=== PATIENT | female | born 1950 | race Asian ===

== ENCOUNTER 2017-05-22 12:20 | Day surgery (SDC) | END 2017-05-22 17:08 | disposition home or self-care (01) | DX: R19.4 Change in bowel habit (principal); D12.0 Benign neoplasm of cecum; K44.9 Diaphragmatic hernia without obstruction or gangrene; K29.60 Other gastritis without bleeding; K64.8 Other hemorrhoids; I10 Essential (primary) hypertension | CPT/HCPCS: 43239; 45380; 87081; 88305; J2250; J3010; Z7610 ==

== ENCOUNTER 2018-11-13 16:25 | Emergency (ER) | payer OTHER ==
[~2018-11-13] VITALS: Wt 48.1 kg
[~2018-11-13 16:25] MED LIST: LISINOPRIL; SIMVASTATIN; ZANTAC
[2018-11-13] MEDS ORDERED: SOD CHLORIDE 0.9% 1,000 ML IV STA (18:50)
--- NOTE | 2018-11-13 19:34 | ERD ---
ER Documentation Chief Complaint Chief Complaint DIZZINESS AND BLOODY STOOLS SINCE TODAY 2 TIMES. GEN WEAKNESS, MILD AP HPI This is a 68-year-old female with a past medical history of hypertension high cholesterol past surgical history that includes a total abdominal hysterectomy. 5 days prior to arrival the patient was diagnosed with influenza and started Tamiflu. She indicates that 2 days prior to arrival she started taking R obitussin. The patient indicates that yesterday prior to going to bed she noticed an orange color tenting her stool. She denied any gross blood per rectum and no melanotic stools. She said no fevers no shaking or chills. She complained of mild epigastric discomfort which she stated lasted for roughly 1 hour and then spontaneously resolved. The patient does have a past medical history of hemorrhoids but indicates she has had no bleeding for several years. The patient did not take any analgesic medication. The patient indicates she had a bowel movement this morning which was coated with a slight yellow-orange color. She denied again any bright red blood. She had no chest pain. She felt slightly dizzy but indicated this lasted for only several seconds and then spontaneously resolved. She denied a headache. ROS All systems reviewed and are negative except as per history of present illness. Medications Home Meds Reported Medications [Simvastatin] No Conflict Check 05/22/17 [Lisinopril] No Conflict Check 05/22/17 [Zantac] No Conflict Check 05/22/17 Allergies Allergies: Coded Allergies: No Known Allergy (Unverified , 05/22/17) PMhx/Soc History of Surgery: Yes (HYSTERECTOMY, colonoscopy) Anesthesia Reaction: No Hx Neurological Disorder: No Hx Respiratory Disorders: No Hx Cardiac Disorders: Yes (HYPERTENSION, high cholesterol) Hx Psychiatric Problems: No Hx Miscellaneous Medical Probl: Yes Hx Alcohol Use: No Hx Substance Use: No Hx Tobacco Use: No Smoking Status: Never smoker Physical Exam Vitals Vital Signs Date Temp Pulse Resp B/P (MAP) Pulse Ox O2 O2 Flow FiO2 Time Delivery Rate 11/13/18 98.9 76 18 170/84 98 16:29 (112) Physical Exam Constitutional:Well-developed. Well-nourished. Very pleasant female not in any respiratory distress or appear to be in any discomfort HEENT:Normocephalic. Atraumatic.Pupils were equal round reactive to light. Moist mucous membranes.No tonsillar exudates. No conjunctival pallor Neck: No nuchal rigidity. No lymphadenopathy. No posterior cervical spine tenderness or step-offs. Respiratory: Not using accessory muscles of respiration.Lungs were clear to auscultation bilaterally. No rhonchi. No rales. No wheezing. Cardiovascular: Regular rate regular rhythm.No murmurs. No rubs were appreciated.S1, S2 normal. Distal pulses are palpable 2+ bilaterally. GI: Abdomen was soft. Nontender. Non Distended. No pulsatile abdominal masses or bruits. No rebound. No guarding. Bowel sounds were present and normal. Rectal: Normal sphincter tone. No gross blood per rectum. No hemorrhoids. Fecal occult blood test negative Muscle skeletal: Full range of motion of both the upper and lower extremities bilaterally.Normal muscle tone.No assymetrical calf tenderness or swelling. Skin: No petechia, no purpura. No lesions on the palms or the soles of the feet. No maculopapular rash. NEURO: Patient was alert, awake, orientated x3.No facial droop. Gait observed and normal with no ataxia.Speech had regular rate and rhythm. No focal neurological deficits. Result Diagram: 11/13/181915 Results 24 hrs Laboratory Tests Test 11/13/18 19:16 White Blood Count 9.0 10^3/ul Red Blood Count 4.17 10^6/ul Hemoglobin 12.8 g/dl Hematocrit 37.7 % Mean Corpuscular Volume 90.4 fl Mean Corpuscular Hemoglobin 30.7 pg Mean Corpuscular Hemoglobin Concent 34.0 g/dl Red Cell Distribution Width 13.4 % Platelet Count 278 10^3/UL Mean Platelet Volume 9.2 fl Immature Granulocytes % 0.200 % Neutrophils % 50.7 % Lymphocytes % 34.9 % Monocytes % 8.6 % Eosinophils % 4.4 % Basophils % 1.2 % Nucleated Red Blood Cells % 0.0 /100WBC Immature Granulocytes # 0.020 10^3/ul Neutrophils # 4.5 10^3/ul Lymphocytes # 3.1 10^3/ul Monocytes # 0.8 10^3/ul Eosinophils # 0.4 10^3/ul Basophils # 0.1 10^3/ul Nucleated Red Blood Cells # 0.0 10^3/ul Current Medications Medications Dose Sig/[place] Start Time Status Last (Trade) Ordered Route PRN Stop Time Admin Dose Reason Admin Sodium 1,000 ml @ Q1H STAT 11/13/18 Chloride 1,000 mls/hr IV 18:50 11/13/18 19:49 Procedures/MDM The patient presented to the emergency department with possible hematochezia, suggesting a lower gastrointestinal bleeding. My differential diagnosis included but was not limited to diverticulosis, cancer, polyps, colitis, internal or external hemorrhoids, IBD, and vascular etiologies such as angiodysplasia or aortocolonic fistula. The patient was placed on a university administrative assistant, continuous pulse oximetry, and IV access established by nursing staff. The patient was given a liter bolus of normal saline. Initially in triage the patient complained of bright red blood per rectum however I felt that there was a language barrier. The patient only speaks to [place]. We did have a trim master operator present and the patient stated she never noticed any bright red blood per rectum but rather a yellow-orange discoloration. The patient's hemoglobin was within normal limits. The patient had no abdominal tenderness on physical exam and had not taken any analgesic medication. She recently was diagnosed with influenza and taking Robitussin. The patient's fecal occult blood test was negative. I did feel that the patient be safely discharged home and indicated that she would benefit from following up with her primary care physician. The patient also had a colonoscopy 2 years ago which was found to be normal. The patient was discharged home in fair condition. They were instructed to return to the emergency department at any time if there was any worsening of their condition. The patient stated they would follow up with their PCP in the next 24-48 hours to initiate a suitable medication regimen under the care of the ir PCP as well as to allow their PCP to monitor any drug reactions. The patient was discharged home with prescriptions after they gave informed consent to the new medication. They were also fully informed by myself on the adverse effects and adverse drug interactions in order to provide adequate safeguards to prevent possible adverse reactions to medications. Departure Diagnosis: Primary Impression: Rectal bleeding Condition: Fair TRESA PINO MD Nov 13, 2018 19:34
[2018-11-13 20:37] VITALS: BP 139/69; PULSE 79; RESP 18
== END 2018-11-13 20:41 | disposition home or self-care (01) ==
LOC: E/R 16:25
DX: K62.5 Hemorrhage of anus and rectum (principal); I10 Essential (primary) hypertension; R10.9 Unspecified abdominal pain
CPT/HCPCS: 80053; 81001; 82150; 84484; 85025; 85610; 85730; 87040; 87086; 93005; J7030; Z7502